=== PATIENT | male | born 1980 | race Caucasian/White ===

== ENCOUNTER 2024-06-04 15:42 | Emergency (ER) | payer MEDICAID, SELFPAY ==
--- NOTE | 2024-06-04 15:51 | ED.PDOC.TRB ---
ED Provider Triage
-
Patient seen by provider in Triage?: Seen in Triage
Attestation: A medical screening examination has been initiated by a qualified medical provider. Based on the assessment performed at this time, it has been determined that an emergent medical condition may exist and the patient has been informed
that further medical evaluation and possible additional diagnostic testing may be needed.
HPI: 43yoM here with abnormal outpatient labs. Saw PCP 1 week ago and had blood work on Tuesday. He was called today and was told to go to the ED. Was told that his blood sugar was very high and that he was dehydrated. C/o polyuria and polydipsia x
several months.
GENERAL: Alert , in no apparent distress
EYE: No visual abnormalities.
NECK: Trachea midline
ENT: No visible abnormalities.
LUNGS: No acute respiratory distress
NEUROLOGICAL: Alert and oriented
SKIN: Skin intact. No visible changes.
MUSCULOSKELETAL: Moving extremities normally
PSYCH: Normal and appropriate interaction.
This is a medical evaluation conducted in person to initiate diagnostic evaluation and provide initial therapeutics. Please see further documentation by the treating clinician.
Will check basic labs, VBG, beta hydroxybutyrate, and UA.
[2024-06-04 15:52] VITALS: BP 134/70
[2024-06-04 15:53] LABS: Glucose - Point of Care 435 mg/dl (70-99)
--- NOTE | 2024-06-04 16:16 | ED.GENMED ---
History of Present Illness
General
Chief Complaint: Abnormal Lab Value
Source: patient
Time Seen by Provider: 06/04/24 16:09
History of Present Illness
History of Present Illness:
43-year-old male presents to the emergency room complaining of fatigue, polyuria, polydipsia. Patient evidently had some outpatient labs performed by his primary care provider and he was noted to have a elevated glucose level. He was instructed to
come to the emergency room for further testing and evaluation. Patient denies any fever, chills, nausea or vomiting. Patient states that when he is very thirsty he has been drinking Gatorade. Patient was also recently started on metoprolol and
other blood pressure medication. Patient does take methadone on a daily basis as well. His dose is 130 mg a day.
Past History
Past History
ED Past Medical History: None
ED Past Surgical History: None
Social History
Tobacco: Non-smoker
Alcohol: None
Drug: IVDA (Heroin and Fentanyl)
Living: alone
Phy Exam
Physical Exam
Physical Exam:
General: Awake, Alert, Oriented X3. No acute distress. Appears somewhat ill
Vitals: unremarkable
Head: Atraumatic
Eyes: Pupils equal, EOMI, sunken eyes
Throat: Airway intact, no exudates, dry mucosa
Neck: Trachea midline
Lungs: Clear and equal b/l
Heart: Regular rate, no murmurs
Abd: Soft, Nontender, No pulsatile mass
Neuro: Nonfocal
Skin: Warm, dry, no rash
Extremities: pulses equal b/l, no edema, decreased turgor
Course
Orders/Labs/Results
Orders:
Orders
06/04/24 16:26
Lactated Ringers [Lr] 1,000 ml IV BOLUS
06/04/24 16:56
B-Hydroxybutyrate Urgent
Complete Blood Count/With Diff Urgent
Comprehensive Metabolic Panel Urgent
Magnesium Urgent
Venous Blood Gas Urgent
%Oxygen/Room Air: room air
06/04/24 17:34
Urinalysis Reflex To Culture Urgent
Date Specimen was Collected: 06/04/24
Time Specimen was Collected: 17:26
Urine Microscopic Reflex Cult Urgent
Urine Culture Urgent
MARLEN Source: U
Specimen Description:
Date Specimen was Collected: 06/04/24
Time Specimen was Collected: 17:26
06/04/24 18:54
Insulin Aspart [NOVOLOG vial] 5 units SC NOW STA
06/04/24 18:55
Diabetes Education Consult Routine
Reason for Consult: Monitor Instruction
Newly Diagnosed?: Yes
Monitor Needed?: Yes
Hypoglycemic Medications:: ORAL
Abnormal Lab Results
06/04/24 06/04/24 06/04/24
15:52 16:56 17:34
RBC 4.68 L 10^6/uL
(4.70-6.10)
Hgb 11.5 L g/dL
(13.0-18.0)
Hct 34.6 L %
(39.0-52.0)
MCV 73.9 L fL
(80.0-94.0)
MCH 24.6 L pg
(27.0-31.0)
RDW 15.3 H %
(11.5-14.5)
Absolute Neuts (auto) 6.7 H 10^3/uL
(1.4-6.5)
VBG pCO2 50 H mmHg
(35-48)
VBG pO2 74 H mmHg
(30-50)
VBG HCO3 29.6 H mmol/L
(22-27)
Sodium 130 L mmol/L
(135-145)
Chloride 90 L mmol/L
(98-107)
Glucose 399 H mg/dl
(70-99)
Alkaline Phosphatase 147 H U/L
(38-126)
Leukocyte Esterase Rfl Trace A
(Negative)
Urine WBC (Reflex) 11-15 A /HPF
(0-5)
Urine Bacteria (Reflex) Few A
(Negative)
Urine Glucose 3+ A
(Negative)
POC Glucose 435 H mg/dl
(70-99)
06/04/24
18:52
RBC
Hgb
Hct
MCV
MCH
RDW
Absolute Neuts (auto)
VBG pCO2
VBG pO2
VBG HCO3
Sodium
Chloride
Glucose
Alkaline Phosphatase
Leukocyte Esterase Rfl
Urine WBC (Reflex)
Urine Bacteria (Reflex)
Urine Glucose
POC Glucose 388 H mg/dl
(70-99)
06/04/24 16:56
06/04/24 16:56
Vital Signs
Initial and Last Documented VS:
Initial Vital Signs
Temp Pulse Resp BP Pulse Ox
97.9 F 69 16 134/70 98
06/04/24 15:52 06/04/24 15:52 06/04/24 15:52 06/04/24 15:52 06/04/24 15:52
Last Documented Vital Signs
Temp Pulse Resp BP Pulse Ox
97.9 F 61 15 118/70 96
06/04/24 15:52 06/04/24 19:30 06/04/24 19:30 06/04/24 19:00 06/04/24 19:30
MDM/Problems Addressed
Differential Diagnosis Includes:
Type 2 diabetes, HHNK, DKA
MDM/Problems Addressed:
Patient has elevated glucose but surprisingly not dramatically elevated. Glucose 399 here. He has no anion gap. Renal function is normal. Patient hydrated with a liter of LR. We will give him a dose of subcutaneous insulin to help immediately
bring his glucose down and start him on Glucophage. He did not appear to meet any admission criteria. I put in a consult with clinical document improvement educator to hopefully call him as an outpatient. Also provided him with some dietary information about how to
deal with his diabetes. Patient does have a primary care provider and I suggest he call then tomorrow to arrange close follow-up.
Patient had a urinalysis which did have some white blood cells per high-power field. Microscopic testing was positive for trace leukocyte esterase but nitrite was negative. Unclear if this represents a true infection. Given his new onset diabetes
the patient does have urinary frequency. Given his uncontrolled diabetes I guess he would be at higher risk for urinary tract infection. Discussed waiting for culture result versus initiating antibiotics now patient would prefer to initiate
antibiotics.
Chronic conditions affecting care: HTN and Other (Opiate use disorder)
*Pulse Oximetry
Patient hypoxic: no
*Critical Care Note
Total Time (30-74mins, 75-104mins- exclusive of procedures): Not Applicable
ED Attending Note
-
Portions of this chart may have been created with voice recognition software.� Occasional wrong word or��sound alike� substitutions may have occurred due to the inherent limitations of voice recognition software.
Discharge Plan
Departure
Patient Disposition: Home (Routine Discharge)
Date of Disposition: 06/04/24
Time of Disposition: 19:14
Patient with high blood pressure during this ER visit?: No
Condition: Good
Discharge Problem:
New onset type 2 diabetes mellitus
Instructions: Type 2 diabetes, Carb counting for adults with diabetes, Diabetes and diet
Prescriptions:
New
metformin 500 mg tablet extended release 24hr
500 mg PO DAILY Qty: 30 0RF
Rx Instructions:
Take with evening meal
cephalexin 500 mg capsule
500 mg PO BID Qty: 10 0RF
No Action
losartan 50 mg Tablet
50 mg PO DAILY
metoprolol tartrate 50 mg Tablet
50 mg PO DAILY
methadone liquid
130 mg PO DAILY
Patient Comments:
06/04/24: Gets from [facility] in [place], unable to confirm stength with them.Patient and [facility] record match from 06/01/24.
Referrals:
Karen Walker CRNP [Family Provider] -
Interventions
Interventions:
*Risk Screen - Suicide Last Done: 06/04/24 16:26
*General Assessment Last Done: 06/04/24 16:26
*Neglect/Abuse Screening Last Done: 06/04/24 16:26
ED- Fall Risk Assessment Last Done: 06/04/24 16:26
*ED COVID-19 Vaccine History Last Done: 06/04/24 16:26
*Nursing Disposition Last Done: 06/04/24 19:52
Discharge Date and Time
Discharge Date/Time: 06/04/24 19:53
Print Language: YAKUT
[2024-06-04 16:26] VITALS: BP 139/77; BMI 37.0
[2024-06-04 17:03] VITALS: BP 126/77
[2024-06-04] MEDS: LR 1000 IV (17:04)
[2024-06-04 17:08] LABS: Venous Blood Gas B.E. 3.6 mmol/L (-4 to +4); Venous Blood Gas HCO3 29.6 mmol/L (22-27); Venous Blood Gas O2 Sat % 97.5 %; Venous Blood Gas pCO2 50 mmHg (35-48); Venous Blood Gas pH 7.38 (7.32-7.43); Venous Blood Gas pO2 74 mmHg (30-50)
[2024-06-04 17:11] LABS: % Basophils 0.6 % (0-2); % Eosinophils 1.8 % (0-6); % Immature Granulocytes 0.4 % (0-0.5); % Neutrophils 69.2 % (42.2-75.2); Absolute Basophils 0.1 10^3/uL (0-0.2); Absolute Eosinophils 0.2 10^3/uL (0-0.7); Absolute Lymphocytes 2.2 10^3/uL (1.2-3.4); Absolute Monocytes 0.5 10^3/uL (0.1-0.6); Absolute Neutrophils 6.7 10^3/uL (1.4-6.5); Hematocrit 34.6 % (39.0-52.0); Hemoglobin 11.5 g/dL (13.0-18.0); Mean Corp Hgb Conc. 33.2 g/dL (33.0-37.0); Mean Corpuscular Hgb 24.6 pg (27.0-31.0); Mean Corpuscular Volume 73.9 fL (80.0-94.0); Mean Platelet Volume 8.7 fL (7.4-10.4); Nucleated Red Blood Cells % 0 % (-); Platelet Count 328 10^3/uL (130-400); Red Blood Cell Count 4.68 10^6/uL (4.70-6.10); Red Cell Dist. Width 15.3 % (11.5-14.5); White Blood Cell Count 9.7 10^3/uL (4.8-10.8)
[2024-06-04 17:26] LABS: ALT (SGPT) 21 U/L (0-50); AST (SGOT) 19 U/L (17-59); Albumin 3.7 g/dl (3.5-5.0); Alkaline Phosphatase 147 U/L (38-126); Blood Urea Nitrogen 9 mg/dl (9-20); Calcium 9.1 mg/dl (8.4-10.2); Carbon Dioxide 28 mmol/L (22-30); Chloride 90 mmol/L (98-107); Estimated Creatinine Clearance > 125 ml/min; Glucose 399 mg/dl (70-99); Magnesium 1.8 mg/dl (1.6-2.3); Potassium 4.4 mmol/L (3.5-5.1); Sodium 130 mmol/L (135-145); Total Bilirubin 0.5 mg/dl (0.2-1.3); Total Protein 7.5 g/dl (6.3-8.2); eGFR > 60.00
[2024-06-04 17:32] LABS: B-Hydroxybutyrate 0.04 mmol/L (0.02-0.27)
[2024-06-04 17:44] LABS: Urine Albumin Negative (Neg - Trace); Urine Bilirubin Negative (Negative); Urine Character Clear (Clear); Urine Color Yellow; Urine Glucose 3+ (Negative); Urine Ketone Negative (Negative); Urine Leukocyte Trace (Negative); Urine Nitrite Negative (Negative); Urine Occult Blood Negative (Negative); Urine Urobilinogen Negative (Neg - 1+)
[2024-06-04 17:53] LABS: Urine Squamous Cell 0-2 /LPF (Few)
[2024-06-04 17:54] LABS: Urine Bacteria Few (Negative); Urine Red Blood Cell 0-2 /HPF (0-2)
[2024-06-04 18:00] VITALS: BP 125/74
[2024-06-04 18:53] LABS: Glucose - Point of Care 388 mg/dl (70-99)
[2024-06-04 19:00] VITALS: BP 118/70
[2024-06-04] MEDS: NOVOLOG vial 5 UNITS SC (19:33)
--- NOTE | 2024-06-05 13:24 | PN.DE ---
Diabetes Education
- -
06/05/2024 Diabetes Education Consult
Patient seen in ED 06/04, dx with new onset diabetes, glucose 399 in ED. Patient had no history of diabetes but was seen at his primary doctors office and had lab work last week. Told to come to ED for abnormal labs. He did c/o fatigue, polyuria,
polydipsia. At home he was taking large quantities of gatorade for the extreme thirst.
Patient was started on metformin 500 mg BID.
I called patient to follow up to provide meter and education. Patient states he is seeing his primary doctor at 2pm today. Offered patient a visit to learn how to test his glucose and provide meter, he states he will check with his primary to
determine if that is needed.
My number provided for further questions.
== END 2024-06-04 19:53 | disposition home or self-care (01) ==
LOC: EMR 15:42
PROVIDERS: Physician Assistant; EMERGENCY PHYSICIAN Emergency Medicine; FAMILY PHYSICIAN Nurse Practitioner Family
DX: E11.65 Type 2 diabetes mellitus with hyperglycemia (principal); I10 Essential (primary) hypertension
CPT/HCPCS: 99284; 96360; 96372; 80053; 81003; 81015; 82010; 82805; 82962; 83735; 85025; 87086

== ENCOUNTER → 2024-07-09 07:36 | Outpatient (REF) | payer OTHER, SELFPAY ==
[2024-07-09 09:22] LABS: ALT (SGPT) 39 U/L (0-50); AST (SGOT) 43 U/L (17-59); Albumin 4.4 g/dl (3.5-5.0); Alkaline Phosphatase 195 U/L (38-126); Blood Urea Nitrogen 7 mg/dl (9-20); Calcium 9.6 mg/dl (8.4-10.2); Carbon Dioxide 24 mmol/L (22-30); Chloride 94 mmol/L (98-107); Glucose 413 mg/dl (70-99); Potassium 4.6 mmol/L (3.5-5.1); Sodium 135 mmol/L (135-145); Total Bilirubin 0.5 mg/dl (0.2-1.3); eGFR > 60.00
[2024-07-09 09:31] LABS: Glycohemoglobin (HgbA1c) 12.6 % (4.0-5.6)
[2024-07-09 09:53] LABS: Ferritin 49.6 ng/ml (17.9-464.0)
[2024-07-09 10:25] LABS: Folate 5.7 ng/ml (2.76-20); Vitamin B12 811 pg/ml (239-931)
== END ==
LOC: REG 07:36
PROVIDERS: ATTENDING PHYSICIAN Nurse Practitioner Family
DX: D64.9 Anemia, unspecified (principal)
CPT/HCPCS: 36415; 80053; 82607; 82728; 82746; 83036

== ENCOUNTER 2024-07-29 07:33 | Emergency (ER) | payer OTHER, SELFPAY ==
[2024-07-29 07:42] VITALS: BP 125/91
[2024-07-29 07:54] VITALS: BMI 33.6
--- NOTE | 2024-07-29 08:03 | ED.GENMED ---
Addendum entered and electronically signed by Deo Walsh DO 07/29/24 11:44:
Update CT reviewed with patient states he does feel little bit nauseous, he will stop his Ozempic give another dose of Zofran bland diet PCP follow-up ER for worsening symptoms
Original Note:
History of Present Illness
General
Chief Complaint: Abdominal Symptoms
Source: patient
Exam Limitations: none
Time Seen by Provider: 07/29/24 07:49
Nursing documentation reviewed up to this point in time: agreed with
History of Present Illness
History of Present Illness:
44-year-old male diabetic previously on metformin recently started Ozempic first dose 2.5 mg a week ago has been having nausea vomiting decreased p.o. intake he thinks it may have actually started before the Ozempic but he is not sure also has
narcotic addiction takes methadone 130 mg a day states he has not missed any doses because of his vomiting he has been supplementing with snorting heroin for bags which helps his symptoms no fever no chest pain mild abdominal cramping after he
vomits does have kidney stones states he has no pain in his back no bloody urine
Past History
Past History
ED Past Medical History: NIDDM and Other (Kidney stones narcotic addiction diabetes)
ED Past Surgical History: Urological
Social History
Tobacco: Non-smoker
Alcohol: None
Drug: IVDA (Heroin and Fentanyl)
Living: alone
Employment: Employed
Review of Systems
Review of Systems
All Other Systems: Not applicable
Constitutional: Denies fever or fatigue
EENT: Reports no symptoms
Respiratory: Reports no symptoms
ABD/GI: Reports abdominal pain, nausea and vomiting
: Reports no symptoms
Musculoskeletal: Reports no symptoms
Skin: Reports no symptoms
Neurological: Reports weakness
Endocrine: Reports no symptoms
Hematologic/Lymphatic: Reports no symptoms
Phy Exam
Physical Exam
Physical Exam:
Physical Exam
General: 44 male looks pale mild distress
Neck: No jaundice
Heart: s1/s2 regular rate and rhythm, no murmur. equal radial pulses.
Lungs: no acute respiratory distress. clear bilaterally
Abdomen: Soft, no guarding or rebound no CVA tender
Neuro: alert and oriented. no focal neurological deficits
Skin: no rash
Psychiatric: well kept. interactive and cooperative
Extremities: no edema. no calf tenderness. negative homans. good distal pulses
Scores
Heart Score for Chest Pain Patients
STEMI patient?: No
History: Slightly or Non-Suspicious
ECG: Nonspecific Repolarization
Age: </= 45 years
Risk Factors: 1 or 2 Risk Factors
Troponin: </= Normal Limit
Heart Score for Chest Pain Patients: 2
Heart Score Risk: 2.5% MACE over next 6 weeks
Course
Orders/Labs/Results
Orders:
Orders
07/29/24 07:50
Electrocardiogram (*1) Stat
Reason for Study: Abdominal Pain
EKG- Treatment ONCE
07/29/24 07:59
0.9% Sodium Chloride 1000 ml [Nss] 1,000 ml IV BOLUS
Ondansetron Injectable [Zofran] 4 mg IV NOW STA
07/29/24 08:03
Urinalysis Reflex To Culture Urgent
Date Specimen was Collected: 07/29/24
Time Specimen was Collected: 08:01
Urine Microscopic Reflex Cult Urgent
Urine Culture Urgent
MARLEN Source: U
Specimen Description:
Date Specimen was Collected: 07/29/24
Time Specimen was Collected: 08:01
07/29/24 08:50
Complete Blood Count/With Diff Urgent
Comprehensive Metabolic Panel Urgent
Lipase Urgent
Magnesium Urgent
Troponin I Urgent
07/29/24 09:35
CT Abd/pel Without Iv Or Oral Urgent
Comment:
Reason For Exam: pain hematuria
Abnormal Lab Results
07/29/24 07/29/24
08:03 08:50
MCV 78.1 L fL
(80.0-94.0)
MCH 25.8 L pg
(27.0-31.0)
RDW 14.7 H %
(11.5-14.5)
Lymphocytes % 19.7 L %
(20.5-51.1)
Sodium 131 L mmol/L
(135-145)
Chloride 91 L mmol/L
(98-107)
BUN 7 L mg/dl
(9-20)
Glucose 384 H mg/dl
(70-99)
Alkaline Phosphatase 179 H U/L
(38-126)
Total Protein 8.7 H g/dl
(6.3-8.2)
Urine Ketones Trace A
(Negative)
Ur Occult Blood Reflex 1+ A
(Negative)
Leukocyte Esterase Rfl 1+ A
(Negative)
Urine RBC 16-20 A /HPF
(0-2)
Urine WBC (Reflex) 26-30 A /HPF
(0-5)
Urine Bacteria (Reflex) Few A
(Negative)
Urine Glucose 3+ A
(Negative)
07/29/24 08:50
07/29/24 08:50
Vital Signs
Initial and Last Documented VS:
Initial Vital Signs
Temp Pulse Resp BP Pulse Ox
99.0 F 99 18 125/91 100
07/29/24 07:42 07/29/24 07:42 07/29/24 07:42 07/29/24 07:42 07/29/24 07:42
Last Documented Vital Signs
Temp Pulse Resp BP Pulse Ox
99.0 F 62 17 112/62 96
07/29/24 07:42 07/29/24 09:45 07/29/24 08:15 07/29/24 09:19 07/29/24 09:45
MDM/Problems Addressed
Differential Diagnosis Includes:
Medication effect narcotic withdrawal renal stone biliary colic pancreatitis doubt bowel obstruction
MDM/Problems Addressed:
Vomiting
Chronic conditions affecting care:
Narcotic use
Chronic conditions affecting care: DM
Acute Exacerbation and/or Progression of Chronic Illness:
Narcotic use
Acute Exacerbation and/or Progression of Chronic Illness: DM
*Critical Care Note
Total Time (30-74mins, 75-104mins- exclusive of procedures): Not Applicable
Update Note
Update Note:
EKG noted will add troponin
Update labs are noted, is getting hydration urine noted culture pending will check CT scan to rule out hydro
[address] report noted patient appears comfortable
ED Attending Note
-
Portions of this chart may have been created with voice recognition software.� Occasional wrong word or��sound alike� substitutions may have occurred due to the inherent limitations of voice recognition software.
Discharge Plan
Departure
Patient Disposition: Home (Routine Discharge)
Date of Disposition: 07/29/24
Time of Disposition: 11:05
Patient with high blood pressure during this ER visit?: No
Condition: Good
Discharge Problem:
Nausea and vomiting, Hyperglycemia, unspecified
Instructions: Nausea and Vomiting, Adult (DC), Chest Pain DCA Follow Up
Prescriptions:
New
ondansetron 4 mg tablet,disintegrating
4 mg PO Q8H PRN (Reason: nausea and vomiting) Qty: 20 0RF
No Action
losartan 50 mg Tablet
50 mg PO DAILY
metoprolol tartrate 50 mg Tablet
50 mg PO DAILY
methadone liquid
130 mg PO DAILY
Patient Comments:
06/04/24: Gets from [facility] in [place], unable to confirm stength with them.Patient and [facility] record match from 06/01/24.
metformin 500 mg tablet extended release 24hr
500 mg PO DAILY Qty: 30 0RF
Rx Instructions:
Take with evening meal
cephalexin 500 mg capsule
500 mg PO BID Qty: 10 0RF
Referrals:
UNKNOWN - PT DOES,NOT KNOW [Family Provider] -
Activity Restrictions/Additional Instructions:
Drink plenty of fluids, Zofran as needed for nausea vomiting follow-up with your family doctor to discuss your symptoms
Interventions
Interventions:
*Risk Screen - Suicide Last Done: 07/29/24 07:42
*General Assessment Last Done: 07/29/24 07:42
*Neglect/Abuse Screening Last Done: 07/29/24 07:42
ED- Fall Risk Assessment Last Done: 07/29/24 07:55
*ED COVID-19 Vaccine History Last Done: 07/29/24 07:55
KK-Agbfkb-Uivhdwzfgp Assessment Last Done: 07/29/24 07:55
Discharge Date and Time
Print Language: CZECH
[2024-07-29 08:15] LABS: Urine Albumin Trace (Neg - Trace); Urine Bilirubin Negative (Negative); Urine Character Slightly Cloudy (Clear); Urine Color Yellow; Urine Glucose 3+ (Negative); Urine Ketone Trace (Negative); Urine Leukocyte 1+ (Negative); Urine Nitrite Negative (Negative); Urine Occult Blood 1+ (Negative); Urine Urobilinogen Negative (Neg - 1+)
[2024-07-29 08:40] LABS: Urine Red Blood Cell 16-20 /HPF (0-2); Urine White Cell 26-30 /HPF (0-5)
[2024-07-29 08:41] LABS: Urine Bacteria Few (Negative)
[2024-07-29 08:42] LABS: Urine Granular Cast 0-2 /LPF (0); Urine Hyaline Cast 0-2 /LPF (0-2)
[2024-07-29] MEDS: NSS 1000 IV (08:51)
[2024-07-29] MEDS: ZOFRAN 4 MG IV ×2 (08:51→11:56)
[2024-07-29 09:05] LABS: % Basophils 0.8 % (0-2); % Eosinophils 0.9 % (0-6); % Immature Granulocytes 0.3 % (0-0.5); % Lymphocytes 19.7 % (20.5-51.1); % Monocytes 5.1 % (1.7-9.3); % Neutrophils 73.2 % (42.2-75.2); Absolute Basophils 0.1 10^3/uL (0-0.2); Absolute Eosinophils 0.1 10^3/uL (0-0.7); Absolute Lymphocytes 1.5 10^3/uL (1.2-3.4); Absolute Monocytes 0.4 10^3/uL (0.1-0.6); Absolute Neutrophils 5.5 10^3/uL (1.4-6.5); Hemoglobin 13.2 g/dL (13.0-18.0); Mean Corpuscular Hgb 25.8 pg (27.0-31.0); Mean Corpuscular Volume 78.1 fL (80.0-94.0); Nucleated Red Blood Cells % 0 % (-); Platelet Count 342 10^3/uL (130-400); Red Blood Cell Count 5.12 10^6/uL (4.70-6.10); Red Cell Dist. Width 14.7 % (11.5-14.5); White Blood Cell Count 7.5 10^3/uL (4.8-10.8)
[2024-07-29 09:15] LABS: ALT (SGPT) 22 U/L (0-50); AST (SGOT) 29 U/L (17-59); Albumin 4.3 g/dl (3.5-5.0); Alkaline Phosphatase 179 U/L (38-126); Blood Urea Nitrogen 7 mg/dl (9-20); Calcium 8.9 mg/dl (8.4-10.2); Carbon Dioxide 27 mmol/L (22-30); Chloride 91 mmol/L (98-107); Estimated Creatinine Clearance > 125 ml/min; Glucose 384 mg/dl (70-99); Lipase 45 U/L (23-300); Potassium 4.4 mmol/L (3.5-5.1); Sodium 131 mmol/L (135-145); Total Bilirubin 0.5 mg/dl (0.2-1.3); Total Protein 8.7 g/dl (6.3-8.2); eGFR > 60.00
[2024-07-29 09:19] VITALS: BP 112/62
[2024-07-29 09:26] LABS: Troponin I < 0.012 ng/ml
[2024-07-29 10:23] VITALS: BP 104/58
[2024-07-29 11:00] VITALS: BP 119/69
== END 2024-07-29 12:18 | disposition home or self-care (01) ==
LOC: EMR 07:33
PROVIDERS: EMERGENCY PHYSICIAN Emergency Medicine
DX: R11.2 Nausea with vomiting, unspecified (principal); E11.65 Type 2 diabetes mellitus with hyperglycemia; Z87.442 Personal history of urinary calculi
CPT/HCPCS: 99284; 96374; 96375; 96361; 74176; 80053; 81003; 81015; 83690; 83735; 84484; 85025; 87086; 93005

== ENCOUNTER 2024-08-27 15:13 | Emergency (ER) | payer OTHER, SELFPAY ==
[2024-08-27] VITALS (9 sets, daily range): BP systolic 89–161; BP diastolic 50–99; BMI 32.4
--- NOTE | 2024-08-27 17:10 | ED.GENMED ---
History of Present Illness
General
Chief Complaint: Abdominal Symptoms
Time Seen by Provider: 08/27/24 16:40
History of Present Illness
History of Present Illness:
44-year-old male with history of polysubstance abuse on methadone with continued use of heroin and fentanyl and diabetes presenting to the emergency department for abdominal discomfort, nausea, vomiting. Patient reports ongoing symptoms for more
than a month. Symptoms wax and wane, with frequent nausea and difficulty tolerating clear liquid by mouth. Has been following with his primary care doctor, and came to the hospital about a month ago which time he had normal laboratory analysis and
CT imaging of his abdomen. At time of symptom onset, patient had started Ozempic, however has since discontinued this medication. He is on metformin for his diabetes. Reports that he uses methadone in the morning, and then uses heroin or fentanyl
in the evening, which she feels makes his symptoms better. Denies any abdominal surgeries in the past. Does note that he was diagnosed with a urinary tract infection recently, prescribed an antibiotic. She denies chest pain or difficulty
breathing. Denies any marijuana use. Denies additional acute medical complaints
Past History
Past History
ED Past Medical History: NIDDM and Other (Kidney stones narcotic addiction diabetes)
ED Past Surgical History: Urological
Social History
Tobacco: Non-smoker
Alcohol: None
Drug: IVDA (Heroin and Fentanyl)
Living: alone
Employment: Employed
Phy Exam
Physical Exam
Physical Exam:
General: Well-appearing, no clinical signs of dehydration, nontoxic and in no acute distress
HEENT: protecting airway
Neck: appears supple
CV: Normal heart rate, regular rhythm
Resp: No accessory muscle use, no increased work of breathing
Abd: Soft and non-distended, mild tenderness to the epigastric abdomen and the right upper quadrant without rebound or guarding
Extremities: No deformities, no swelling, no erythema. Significant amount of track whaley to bilateral upper extremities
Neuro: alert, no focal neurologic deficit
: deferred
Rectal: deferred
Psych: Normal affect
Skin: Intact
Course
Orders/Labs/Results
Orders:
Orders
08/27/24 17:02
0.9% Sodium Chloride 1000 ml [Nss] 1,000 ml IV BOLUS
Ondansetron Injectable [Zofran] 4 mg IV NOW STA
US Abdomen Complete/Upper Urgent
Comment:
Reason For Exam: pain in RUQ/epigstric
08/27/24 17:03
Pantoprazole [Protonix IV] 40 mg IV NOW STA
08/27/24 18:09
Complete Blood Count/With Diff Urgent
Comprehensive Metabolic Panel Urgent
Lipase Urgent
Urinalysis Reflex To Culture Urgent
Date Specimen was Collected: 08/27/24
Time Specimen was Collected: 17:54
Urine Microscopic Reflex Cult Urgent
08/27/24 19:20
CT Abd/pel Without Iv Or Oral Urgent
Comment:
Reason For Exam: pain, hx stones
08/27/24 22:56
HYDROmorphone [Dilaudid] 1 mg IV NOW STA
Ondansetron Injectable [Zofran] 4 mg IV NOW STA
Abnormal Lab Results
08/27/24
18:09
MCV 76.0 L fL
(80.0-94.0)
MCH 24.7 L pg
(27.0-31.0)
MCHC 32.5 L g/dL
(33.0-37.0)
Sodium 131 L mmol/L
(135-145)
Chloride 92 L mmol/L
(98-107)
BUN 8 L mg/dl
(9-20)
Glucose 313 H mg/dl
(70-99)
AST 94 H U/L
(17-59)
ALT 60 H U/L
(0-50)
Alkaline Phosphatase 276 H U/L
(38-126)
Total Protein 8.5 H g/dl
(6.3-8.2)
Urine Ketones Trace A
(Negative)
Urine Bilirubin 1+ A
(Negative)
Leukocyte Esterase Rfl Trace A
(Negative)
Urine RBC 3-6 A /HPF
(0-2)
Urine Glucose 3+ A
(Negative)
08/27/24 18:09
08/27/24 18:09
Vital Signs
Initial and Last Documented VS:
Initial Vital Signs
Temp Pulse Resp BP Pulse Ox
98.1 F 84 18 89/73 100
08/27/24 15:31 08/27/24 15:31 08/27/24 15:31 08/27/24 15:31 08/27/24 15:31
Last Documented Vital Signs
Temp Pulse Resp BP Pulse Ox
98.1 F 73 18 108/50 99
08/27/24 15:31 08/27/24 22:28 08/27/24 22:28 08/27/24 21:00 08/27/24 22:28
MDM/Problems Addressed
MDM/Problems Addressed:
44-year-old male with history of polysubstance abuse on methadone presenting for over a month of nausea and vomiting with abdominal discomfort. Vital signs on arrival are significant for mildly low blood pressure.
On exam, patient is resting comfort. He is nontoxic in appearance. Benign abdominal exam with mild tenderness epigastric and right upper quadrant. Ultimately suspect gastritis component. Patient denies any marijuana usage, lower risk. On review
of EMR, was seen in the emergency department on 07/29 for similar symptoms, had Including laboratory analysis and CT abdominal imaging. No acute intra-abdominal process identified at that time. Given benign examination, do not feel patient
warrants repeat CT abdominal imaging. Patient's discomfort appears to be in the upper area of the abdomen, so we will obtain ultrasound imaging of the abdomen and repeat laboratory analysis. Will treat patient with IV fluids, Zofran, Pepcid and
reassess for improvement
19:20 - Patient's labs are relatively unremarkable. No leukocytosis. He does have slight elevation of liver function, however normal T. bili. Ultrasound without evidence of gallbladder abnormality or any dilatation of biliary tree, however does
note fatty liver, likely source of mild transaminitis. Urine does show some elements of infection, however patient is asymptomatic, currently on antibiotic. Will send urine culture. Do not suspect pyelonephritis. Patient with history of kidney
stones in the past, however no present abdominal pain or flank pain. Notes that when he had a prior obstructing kidney stone he did not have any pain. For this reason we will obtain a CT of the abdomen without contrast
22:50 - CT without evidence of obstructing stone. No obvious etiology to patient's persistent symptoms. There is mention of some inflammation to the right gluteal region. On reassessment, no induration, no erythema, no sign of abscess or IV
injection of drugs. Continue to suspect gastric pathology. Patient still vomiting on my assessment. Given length of time that patient has been here, do suspect withdrawal component, notes that he usually uses IV drugs at evening time. Patient's
blood pressure has improved, indicating likely mild dehydration. Explained that if patient is still having the tractable vomiting, recommending admission for continued therapy, possible GI consultation. Given the holiday, patient would prefer to
go home and come back as needed. Additional dose of Zofran and now Dilaudid administered for suspected concomitant withdrawal. Otherwise vital signs stable for discharge. Advising GI follow-up. Return precautions discussed with patient
verbalized understanding.
*Critical Care Note
Total Time (30-74mins, 75-104mins- exclusive of procedures): Not Applicable
ED Attending Note
-
Portions of this chart may have been created with voice recognition software.� Occasional wrong word or��sound alike� substitutions may have occurred due to the inherent limitations of voice recognition software.
Discharge Plan
Departure
Prescriptions:
No Action
losartan 50 mg Tablet
50 mg PO DAILY
metoprolol tartrate 50 mg Tablet
50 mg PO DAILY
methadone liquid
130 mg PO DAILY
Patient Comments:
06/04/24: Gets from [facility] in [place], unable to confirm stength with them.Patient and [facility] record match from 06/01/24.
metformin 500 mg tablet extended release 24hr
500 mg PO DAILY Qty: 30 0RF
Rx Instructions:
Take with evening meal
cephalexin 500 mg capsule
500 mg PO BID Qty: 10 0RF
ondansetron 4 mg tablet,disintegrating
4 mg PO Q8H PRN (Reason: nausea and vomiting) Qty: 20 0RF
Referrals:
Karen Walker CRNP [Family Provider] -
Interventions
Interventions:
*Risk Screen - Suicide Last Done: 08/27/24 15:31
*General Assessment Last Done: 08/27/24 15:31
*Neglect/Abuse Screening Last Done: 08/27/24 15:31
ED- Fall Risk Assessment Last Done: 08/27/24 18:32
*ED COVID-19 Vaccine History Last Done: 08/27/24 22:29
BY-Lextzh-Zqpomxzfpo Assessment Last Done: 08/27/24 18:32
Discharge Date and Time
Print Language: LATVIAN
[2024-08-27] MEDS: NSS 1000 IV (18:13)
[2024-08-27] MEDS: ZOFRAN 4 MG IV ×2 (18:13→23:08)
[2024-08-27] MEDS: PROTONIX IV 40 MG IV (18:14)
[2024-08-27 18:16] LABS: % Basophils 0.6 % (0-2); % Eosinophils 1.1 % (0-6); % Immature Granulocytes 0.4 % (0-0.5); % Monocytes 4.1 % (1.7-9.3); % Neutrophils 67.8 % (42.2-75.2); Absolute Basophils 0.1 10^3/uL (0-0.2); Absolute Eosinophils 0.1 10^3/uL (0-0.7); Absolute Lymphocytes 2.1 10^3/uL (1.2-3.4); Absolute Monocytes 0.3 10^3/uL (0.1-0.6); Absolute Neutrophils 5.6 10^3/uL (1.4-6.5); Hematocrit 41.8 % (39.0-52.0); Hemoglobin 13.6 g/dL (13.0-18.0); Mean Corp Hgb Conc. 32.5 g/dL (33.0-37.0); Mean Corpuscular Hgb 24.7 pg (27.0-31.0); Mean Platelet Volume 8.8 fL (7.4-10.4); Nucleated Red Blood Cells % 0 % (-); Platelet Count 394 10^3/uL (130-400); Red Cell Dist. Width 14.3 % (11.5-14.5); White Blood Cell Count 8.2 10^3/uL (4.8-10.8)
[2024-08-27 18:17] LABS: Urine Albumin Trace (Neg - Trace); Urine Bilirubin 1+ (Negative); Urine Character Clear (Clear); Urine Color Amber; Urine Glucose 3+ (Negative); Urine Ketone Trace (Negative); Urine Leukocyte Trace (Negative); Urine Nitrite Negative (Negative); Urine Occult Blood Negative (Negative); Urine Specific Gravity 1.025 (<1.030); Urine Urobilinogen 1+ (Neg - 1+)
[2024-08-27 18:32] LABS: ALT (SGPT) 60 U/L (0-50); AST (SGOT) 94 U/L (17-59); Albumin 4.1 g/dl (3.5-5.0); Alkaline Phosphatase 276 U/L (38-126); Blood Urea Nitrogen 8 mg/dl (9-20); Calcium 9.2 mg/dl (8.4-10.2); Carbon Dioxide 26 mmol/L (22-30); Chloride 92 mmol/L (98-107); Glucose 313 mg/dl (70-99); Potassium 4.3 mmol/L (3.5-5.1); Sodium 131 mmol/L (135-145); Total Bilirubin 0.9 mg/dl (0.2-1.3); Total Protein 8.5 g/dl (6.3-8.2); eGFR > 60.00
[2024-08-27 18:38] LABS: Lipase 46 U/L (23-300)
[2024-08-27 18:42] LABS: Urine Mucus Many; Urine Squamous Cell 0-2 /LPF (Few)
[2024-08-27] MEDS: DILAUDID 1 MG IV (23:08)
== END 2024-08-27 23:50 | disposition home or self-care (01) ==
LOC: EMR 15:13
PROVIDERS: Emergency Medicine; EMERGENCY PHYSICIAN Student in an Organized Health Care Education/Training Program; FAMILY PHYSICIAN Nurse Practitioner Family
DX: R11.2 Nausea with vomiting, unspecified (principal); R10.9 Unspecified abdominal pain; E11.9 Type 2 diabetes mellitus without complications; Z79.84 Long term (current) use of oral hypoglycemic drugs; F11.20 Opioid dependence, uncomplicated
CPT/HCPCS: 99284; 96374; 96375; 96376; 96361; 74176; 76700; 80053; 81003; 81015; 83690; 85025

== ENCOUNTER 2024-09-05 17:08 | Emergency (ER) | payer OTHER, SELFPAY ==
[2024-09-05 17:16] VITALS: BP 114/76
[2024-09-05 18:47] VITALS: BP 98/67
[2024-09-05 20:00] VITALS: BP 166/80
[2024-09-05 21:00] VITALS: BMI 34.3
[2024-09-05 21:30] LABS: % Basophils 0.8 % (0-2); % Eosinophils 1.7 % (0-6); % Immature Granulocytes 0.2 % (0-0.5); % Lymphocytes 25.1 % (20.5-51.1); % Monocytes 6.9 % (1.7-9.3); % Neutrophils 65.3 % (42.2-75.2); Absolute Basophils 0.1 10^3/uL (0-0.2); Absolute Eosinophils 0.2 10^3/uL (0-0.7); Absolute Lymphocytes 2.2 10^3/uL (1.2-3.4); Absolute Monocytes 0.6 10^3/uL (0.1-0.6); Absolute Neutrophils 5.6 10^3/uL (1.4-6.5); Hematocrit 42.6 % (39.0-52.0); Hemoglobin 13.9 g/dL (13.0-18.0); Mean Corp Hgb Conc. 32.6 g/dL (33.0-37.0); Mean Corpuscular Hgb 24.1 pg (27.0-31.0); Mean Platelet Volume 8.6 fL (7.4-10.4); Nucleated Red Blood Cells % 0 % (-); Platelet Count 451 10^3/uL (130-400); Red Blood Cell Count 5.76 10^6/uL (4.70-6.10); Red Cell Dist. Width 14.3 % (11.5-14.5); White Blood Cell Count 8.6 10^3/uL (4.8-10.8)
[2024-09-05 21:38] LABS: ALT (SGPT) 28 U/L (0-50); AST (SGOT) 45 U/L (17-59); Alkaline Phosphatase 335 U/L (38-126); Blood Urea Nitrogen 11 mg/dl (9-20); Calcium 9.3 mg/dl (8.4-10.2); Carbon Dioxide 23 mmol/L (22-30); Chloride 91 mmol/L (98-107); Glucose 264 mg/dl (70-99); Lipase 52 U/L (23-300); Potassium 3.9 mmol/L (3.5-5.1); Sodium 130 mmol/L (135-145); Total Bilirubin 0.7 mg/dl (0.2-1.3); Total Protein 8.6 g/dl (6.3-8.2); eGFR > 60.00
[2024-09-05 22:00] VITALS: BP 152/78
[2024-09-06] MEDS: VIBRAMYCIN 100 MG PO (00:02)
[2024-09-06] MEDS: ZOFRAN ODT (ORALLY DISINTEGRATING) 4 MG PO (00:03)
--- NOTE | 2024-09-06 23:00 | ED.GENMED ---
History of Present Illness
General
Chief Complaint: Abdominal Symptoms
Source: patient
Exam Limitations: none
Time Seen by Provider: 09/05/24 20:48
Nursing documentation reviewed up to this point in time: agreed with
History of Present Illness
History of Present Illness:
Patient to ED with complaint of n/v x 1 month and suspected abscess to right upper arm. States he has been evaluated for n/v in the past but no cause revealed. He does admit to IVDA. Last use Fentanyl this afternoon. Last PM he noted redness and
swelling to right upper arm at site of prior drug use injection. Denies fever/chills. Brought self to ED for eval.
Past History
Past History
ED Past Medical History: NIDDM and Other (Kidney stones narcotic addiction diabetes)
ED Past Surgical History: Urological
Social History
Tobacco: Non-smoker
Alcohol: None
Drug: IVDA (Heroin and Fentanyl)
Living: alone
Employment: Employed
Phy Exam
General Physical Exam
General Presentation: well appearing and no apparent distress
General age: appears stated age
General Skin: warm and dry
General Habitus: normal
General Mental: alert
Gastrointestinal Exam
Gastrointestinal Exam: normal bowel sounds, non tender, soft, no organomegaly, non distended and no cva tenderness
Musculoskeletal Exam
Musculoskeletal Exam: full ROM and neuro vasc intact
Skin Exam
Skin Exam: warm/dry and other (small abscess noted RUE at site of IV drug use. Multple areas of scarring from drug use.)
Psychiatric Exam
Psychiatric Exam: normal mood/affect
Course
Orders/Labs/Results
Orders:
Orders
09/05/24 17:19
Electrocardiogram (*1) Urgent
Reason for Study: Tachycardia
EKG- Treatment ONCE
09/05/24 21:03
Non Vasc Upper Exr Right US [US Non Vasc UPPER Ext RT] Urgent
Comment:
Reason For Exam: possible abscess right upper arm
09/05/24 21:14
Complete Blood Count/With Diff Urgent
Comprehensive Metabolic Panel Urgent
Lipase Urgent
09/05/24 23:46
Ondansetron Orally Disint [Zofran Odt (Orally Disintegrating)] 4 mg PO NOW STA
09/05/24 23:50
Doxycycline [Vibramycin] 100 mg PO NOW STA
Abnormal Lab Results
09/05/24
21:14
MCV 74.0 L fL
(80.0-94.0)
MCH 24.1 L pg
(27.0-31.0)
MCHC 32.6 L g/dL
(33.0-37.0)
Plt Count 451 H 10^3/uL
(130-400)
Sodium 130 L mmol/L
(135-145)
Chloride 91 L mmol/L
(98-107)
Glucose 264 H mg/dl
(70-99)
Alkaline Phosphatase 335 H U/L
(38-126)
Total Protein 8.6 H g/dl
(6.3-8.2)
09/05/24 21:14
09/05/24 21:14
Vital Signs
Initial and Last Documented VS:
Initial Vital Signs
Temp Pulse Resp BP Pulse Ox
98.8 F 134 18 114/76 100
09/05/24 17:16 09/05/24 17:16 09/05/24 17:16 09/05/24 17:16 09/05/24 17:16
Last Documented Vital Signs
Temp Pulse Resp BP Pulse Ox
98.6 F 80 18 152/78 98
09/05/24 22:00 09/05/24 22:00 09/05/24 22:00 09/05/24 22:00 09/05/24 22:00
Procedures
Incision/Drainage/Joint Aspiration
Right Upper Arm:
Anethesia: 1% Lidocaine
Preparation: cleaned with Betadine
Type of procedure: incise and drain
Nature of site: abscess
Description of abscess: less than 3cm
Loculations broken up: Yes
How much fluid was obtained?: scant amount
Fluid description: cloudy
Treatment: left open for drainage and antibiotics started
*Radiology
Radiology exam reviewed: radiology read reviewed
*Pulse Oximetry
Patient hypoxic: no
*Critical Care Note
Total Time (30-74mins, 75-104mins- exclusive of procedures): Not Applicable
Update Note
Update Note:
Abdominal exam without concerning findings. Has had GI complaints for many months, has had multiple evaluations in the past at various ED's. No findings to explain his symptoms. He was adivsed to f/u with GI in the past but has not followed thru.
Labs tonight WNL. No pain elicited on exam. I dont feel CT is indicated at this time. Would recommend GI evaluation outpatient. He was provided number for follow up. Requesting Dilaudid which was declined by me.
ED Attending Note
-
Portions of this chart may have been created with voice recognition software.� Occasional wrong word or��sound alike� substitutions may have occurred due to the inherent limitations of voice recognition software.
Discharge Plan
Departure
Patient Disposition: Home (Routine Discharge)
Date of Disposition: 09/05/24
Time of Disposition: 23:51
Patient with high blood pressure during this ER visit?: No
Condition: Good
Discharge Problem:
Abscess of skin
Instructions: Skin abscess
Prescriptions:
New
doxycycline hyclate 100 mg tablet
100 mg PO BID Qty: 20 0RF
No Action
losartan 50 mg Tablet
50 mg PO DAILY
metoprolol tartrate 50 mg Tablet
50 mg PO DAILY
methadone liquid
130 mg PO DAILY
Patient Comments:
06/04/24: Gets from [facility] in [place], unable to confirm stength with them.Patient and [facility] record match from 06/01/24.
metformin 500 mg tablet extended release 24hr
500 mg PO DAILY Qty: 30 0RF
Rx Instructions:
Take with evening meal
cephalexin 500 mg capsule
500 mg PO BID Qty: 10 0RF
ondansetron 4 mg tablet,disintegrating
4 mg PO Q8H PRN (Reason: nausea and vomiting) Qty: 20 0RF
Referrals:
UNKNOWN - PT NOT,INTERVIEWE [Family Provider] -
Gisselle Bob, DO [Active] - Next open appointment
Activity Restrictions/Additional Instructions:
Follow up with your family doctor.
Interventions
Interventions:
*Risk Screen - Suicide Last Done: 09/05/24 17:16
*General Assessment Last Done: 09/05/24 17:16
*Neglect/Abuse Screening Last Done: 09/05/24 17:16
*ED COVID-19 Vaccine History Last Done: 09/05/24 17:16
*Nursing Disposition Last Done: 09/06/24 01:02
OM-Vcmepg-Qwjsernzhl Assessment Last Done: 09/05/24 21:00
Discharge Date and Time
Discharge Date/Time: 09/06/24 01:03
Print Language: [place]
Skin Exam
Abscess
Right Upper Arm:
Description of abscess: firm
Surrounding skin:: inflammed at abscess site
== END 2024-09-06 01:03 | disposition home or self-care (01) ==
LOC: EMR 17:08
PROVIDERS: Nurse Practitioner; EMERGENCY PHYSICIAN Emergency Medicine
DX: L02.413 Cutaneous abscess of right upper limb (principal); R11.2 Nausea with vomiting, unspecified; E11.9 Type 2 diabetes mellitus without complications; F11.20 Opioid dependence, uncomplicated; Z87.442 Personal history of urinary calculi
CPT/HCPCS: 99284; 10060; 76882; 80053; 83690; 85025; 93005

== ENCOUNTER 2024-09-13 14:07 | Emergency (ER) | payer OTHER, SELFPAY ==
--- NOTE | 2024-09-13 14:18 | ED.GENMED ---
History of Present Illness
General
Chief Complaint: CODE
Source: ambulance crew
Exam Limitations: clinical condition
Time Seen by Provider: 09/13/24 14:13
Nursing documentation reviewed up to this point in time: agreed with
History of Present Illness
History of Present Illness:
44-year-old male with reported history of polysubstance use presents to the emergency room via EMS in cardiac arrest. According to EMS report they received a call for shortness of breath. On their arrival patient patient apparently appeared alvarado
with labored breathing. Shortly after their arrival he had a witnessed arrest by EMS. Initial rhythm PEA. ACLS initiated patient was intubated in the field. He received approximately 45 minutes total of ACLS in the field, multiple rounds of
epinephrine, bicarb, calcium in the field without ROSC and persistent PEA asystole�no shockable rhythms. He was transported to the ER and arrives to us intubated with ACLS in progress.
Past History
Past History
ED Past Medical History: NIDDM and Other (Kidney stones narcotic addiction diabetes)
ED Past Surgical History: Urological
Social History
Tobacco: Non-smoker
Alcohol: None
Drug: IVDA (Heroin and Fentanyl)
Living: alone
Employment: Employed
Review of Systems
Review of Systems
Unable to obtain full review of systems at this time due to: due to acuity
All Other Systems: Not applicable
Phy Exam
Physical Exam
Physical Exam:
General: Unresponsive, cardiac arrest, CPR in progress
Head: Normocephalic, atraumatic
Eyes: Conjunctiva normal, pupils fixed and dilated
Throat: Intubated
Neck: Trachea midline
Lungs: Bilateral breath sounds present, ET tube in place
Heart: Pulseless, CPR in progress
Abd: Soft, non distended
Neuro: Unresponsive
Extremities: Track whaley and bruising on both arms, extremities are cool and mottled
Scores
Heart Failure Risk
Heart Failure Risk Score: Not Applicable
Heart Score for Chest Pain Patients
STEMI patient?: Not applicable
Withdrawal Assessment of Alcohol
Withdrawal Assessment Completed?: Not applicable
Course
Orders/Labs/Results
Orders:
Orders
09/13/24 14:08
EPINEPHrine [Adrenalin 1 mg/10 ml] 2 mg .ROUTE .STK-MED ONE
Sodium Bicarbonate 100 meq .ROUTE .STK-MED ONE
Vital Signs
Initial and Last Documented VS:
Initial Vital Signs
BP
131/21
09/13/24 14:22
Last Documented Vital Signs
BP
131/21
09/13/24 14:22
MDM/Problems Addressed
Differential Diagnosis Includes:
Massive PE, vascular event (dissection, aneurysm, etc), sudden cardiac arrest, polysubstance overdose
MDM/Problems Addressed:
44-year-old male presents to the emergency room in cardiac arrest. Received 45 minutes of ACLS in the field and was intubated in the field, received multiple rounds of epinephrine, bicarb, calcium without ROSC. Persistent PEA asystole. Confirmed
pulseless on arrival. Given additional round of epinephrine and bicarbonate. ET tube confirmed. Case discussed with change coordinator�unfortunately with prolonged arrest and never any ROSC would not be candidate for ECMO. After 8 additional minutes of
ACLS here and total downtime greater than 50 minutes without any ROSC patient was pronounced at 14:16. Family updated--mother, brother, nieces.
Case discussed with [facility] medical tech: Case will be picked up by the medical tech given age and drug use history.
Chronic conditions affecting care:
Polysubstance use
*Pulse Oximetry
Patient hypoxic: yes
*Critical Care Note
Total Time (30-74mins, 75-104mins- exclusive of procedures): Not Applicable
Data Reviewed
Source: records and ambulance crew
Patient Management
Discussion with other providers: Medical Record Technician (Discussed with change coordinator)
ED Attending Note
-
Portions of this chart may have been created with voice recognition software.� Occasional wrong word or��sound alike� substitutions may have occurred due to the inherent limitations of voice recognition software.
Discharge Plan
Departure
Patient Disposition:
Date of Disposition: 09/13/24
Time of Disposition: 14:23
Discharge Problem:
Cardiac arrest
Prescriptions:
No Action
losartan 50 mg Tablet
50 mg PO DAILY
metoprolol tartrate 50 mg Tablet
50 mg PO DAILY
methadone liquid
130 mg PO DAILY
Patient Comments:
06/04/24: Gets from [facility] in [place], unable to confirm stength with them.Patient and [facility] record match from 06/01/24.
metformin 500 mg tablet extended release 24hr
500 mg PO DAILY Qty: 30 0RF
Rx Instructions:
Take with evening meal
cephalexin 500 mg capsule
500 mg PO BID Qty: 10 0RF
ondansetron 4 mg tablet,disintegrating
4 mg PO Q8H PRN (Reason: nausea and vomiting) Qty: 20 0RF
doxycycline hyclate 100 mg tablet
100 mg PO BID Qty: 20 0RF
Referrals:
UNKNOWN - PT DOES,NOT KNOW [Family Provider] -
Interventions
Interventions:
*Risk Screen - Suicide Last Done: 09/13/24 14:22
*General Assessment Last Done: 09/13/24 14:22
*Neglect/Abuse Screening Last Done: 09/13/24 14:22
*ED COVID-19 Vaccine History Last Done: 09/13/24 14:22
*Nursing Disposition Last Done: 09/13/24 17:00
Discharge Date and Time
Discharge Date/Time: 09/13/24 17:00
Print Language: CITIZEN [place]
Pronouncement of
-
Called to see patient to pronounce.
No spontaneous heart tones or respirations noted.
Patient not responsive to verbal stimuli.
Patient is pronounced .
Time of : 14:16
Date of : 09/13/24
Cause of : cardiac arrest
Family Notified: Yes
--- NOTE | 2024-09-13 15:25 | CHAP ---
Emotional/spiritual support offered to Donaldo's family. They politely declined.
== END 2024-09-13 14:25 | disposition expired ==
LOC: EMR 14:07
PROVIDERS: EMERGENCY PHYSICIAN Emergency Medicine
DX: I46.9 Cardiac arrest, cause unspecified (principal); E11.9 Type 2 diabetes mellitus without complications; F19.10 Other psychoactive substance abuse, uncomplicated
CPT/HCPCS: 92950; 99285